=== PATIENT | female | born 1960 | race African-American/Black ===

== ENCOUNTER 2023-12-16 16:49 | Emergency (ER) | payer OTHER ==
[~2023-12-16] VITALS: Ht 157.5 cm; Wt 52.2 kg
[2023-12-16] MEDS ORDERED: BACIOIN15 TOP (18:32)
[2023-12-16 21:30] VITALS: BP 139/78; PULSE 69; RESP 12; TEMP 98.3; O2SAT 96
== END 2023-12-16 21:36 | disposition home or self-care (01) ==
LOC: ER 16:49
DX: S00.83XA Contusion of other part of head, initial encounter (principal); S00.31XA Abrasion of nose, initial encounter; W01.0XXA Fall on same level from slipping, tripping and stumbling without subsequent striking against object, initial encounter; Y93.89 Activity, other specified; Y92.89 Other specified places as the place of occurrence of the external cause; Y99.8 Other external cause status
CPT/HCPCS: 70450; 70486